=== PATIENT | male | born 1935 | race Caucasian/White ===

== ENCOUNTER 2024-11-11 23:32 | Inpatient (IN) | payer MEDICARE ==
[~2024-11-11] VITALS: Ht 180.3 cm; Wt 84.8 kg
[2024-11-12] MEDS ORDERED: GABA-532 PO (00:21)
[2024-11-12] MEDS ORDERED: LISI-782 PO (00:21)
[2024-11-12] MEDS ORDERED: PRAV10TA40 PO (00:21)
[2024-11-12] MEDS ORDERED: TAMS-3 PO (00:21)
[2024-11-12] MEDS ORDERED: BACL10TA PO (00:21)
[2024-11-12 01:25] VITALS: BP 131/62; TEMP 98.3; O2SAT 95
[2024-11-12] MEDS ORDERED: MAGNESIUM HYDROXIDE 30 ML LIQUID UDC PO PRN (01:30)
[2024-11-12] MEDS ORDERED: TEMAZEPAM 7.5 MG CAPSULE PO PRN ×2 (01:30)
[2024-11-12] MEDS ORDERED: LORAZEPAM 0.5 MG TABLET PO PRN (01:30)
[2024-11-12] MEDS ORDERED: MAG HYDROX/AL HYDROX/SIMETH 30 ML LIQUID UDC PO PRN (01:30)
[2024-11-12] MEDS: BLOOD SUGAR DIAGNOSTIC 1 EACH STRIP VI ONE (01:45)
[2024-11-12] MEDS: LORAZEPAM 1 MG TABLET PO PRN (03:34)
[2024-11-12] MEDS: ACETAMINOPHEN 325 MG TABLET PO PRN (03:35)
[2024-11-12 08:05] VITALS: BP 112/43; TEMP 97.5; O2SAT 95
[2024-11-12 08:15] LABS: GLUCOSE FASTING 110.0 mg/dL (70-115)
[2024-11-12] MEDS ORDERED: BACLOFEN 10 MG TABLET PO SCH (10:15)
[2024-11-12] MEDS ORDERED: GABAPENTIN 100 MG CAPSULE PO SCH (10:15)
[2024-11-12] MEDS ORDERED: LISINOPRIL 5 MG TABLET PO SCH (10:15)
[2024-11-12 10:48] LABS: PLATELET COUNT (AUTO) 157 K/uL (152-348); RED CELL DISTRIBUTION WIDTH 18.2 % (12.1-16.2); WHITE BLOOD COUNT (AUTO) 5.8 K/uL (3.6-10.2)
[2024-11-12 10:53] LABS: RED BLOOD CELL COUNT(AUTO) 2.37 MIL/uL (4.06-5.63)
[2024-11-12 10:54] LABS: EOSINOPHILS % (MANUAL) 4 % (0-8); LYMPHOCYTES % (MANUAL) 21 % (20-40); MONOCYTES % (MANUAL) 11 % (2-10); NEUTROPHILS % (MANUAL) 63 % (42-75); PLATELET ESTIMATE ADEQUATE
[2024-11-12 10:56] LABS: CREATININE 1.2 mg/dL (0.6-1.3); SODIUM SERUM 146 mmol/L (136-145); UREA NITROGEN, BLOOD 27 mg/dL (7-18)
[2024-11-12] MEDS ORDERED: LORAZEPAM 1 MG TABLET PO PRN (16:30)
[2024-11-12] MEDS ORDERED: TAMSULOSIN HCL 0.4 MG CAP.SR.24H PO SCH (18:00)
[2024-11-12 18:02] VITALS: BP 108/44; TEMP 97.4; O2SAT 100
== END 2024-11-12 19:10 | disposition short-term general hospital (02) | DRG 885 ==
LOC: ER 23:48 → GPS 11-12 00:10
PROVIDERS: ADMIT Psychiatry & Neurology Psychosomatic Medicine; ATTEND Nurse Practitioner Family
DX: F39 Unspecified mood [affective] disorder (principal); I69.351 Hemiplegia and hemiparesis following cerebral infarction affecting right dominant side; R71.0 Precipitous drop in hematocrit; T38.3X2D Poisoning by insulin and oral hypoglycemic [antidiabetic] drugs, intentional self-harm, subsequent encounter; E11.40 Type 2 diabetes mellitus with diabetic neuropathy, unspecified; E78.5 Hyperlipidemia, unspecified; N40.0 Benign prostatic hyperplasia without lower urinary tract symptoms; Z79.84 Long term (current) use of oral hypoglycemic drugs; Z79.899 Other long term (current) drug therapy; I48.91 Unspecified atrial fibrillation; I25.10 Atherosclerotic heart disease of native coronary artery without angina pectoris; I10 Essential (primary) hypertension; R41.9 Unspecified symptoms and signs involving cognitive functions and awareness
CPT/HCPCS: 36415; 70030-TC

== ENCOUNTER 2024-11-12 19:55 | Inpatient (IN) | payer MEDICARE ==
[~2024-11-12] VITALS: Ht 180.3 cm; Wt 84.8 kg
[~2024-11-12 19:55] MED LIST: BACL10TA PO; GABA-532 PO; LISI-782 PO; PRAV10TA40 PO; TAMS-3 PO
[2024-11-12 20:00] VITALS: BP 121/67; TEMP 98.3; O2SAT 99
[2024-11-12] MEDS ORDERED: MAGNESIUM HYDROXIDE 30 ML LIQUID UDC PO PRN (20:15)
[2024-11-12] MEDS ORDERED: ONDANSETRON 4 MG/2 ML VIAL IV PRN (20:15)
[2024-11-12] MEDS ORDERED: ACETAMINOPHEN 325 MG TABLET PO PRN (20:15)
[2024-11-13] MEDS: IV NS 1000 ML 1,000 ML IV PRN (01:23)
[2024-11-13 08:05] VITALS: BP 109/53; TEMP 97.7; O2SAT 96
[2024-11-13] MEDS: PANTOPRAZOLE SODIUM 40 MG VIAL IV SCH (08:07)
[2024-11-13 08:19] LABS: *OCCULT BLOOD STOOL NEGATIVE (NEGATIVE)
[2024-11-13 11:32] VITALS: BP 97/46; TEMP 97.9; O2SAT 98
[2024-11-13 15:51] VITALS: BP 97/48; TEMP 97.9; O2SAT 98
[2024-11-13 19:00] VITALS: BP 105/56; TEMP 97.9; O2SAT 99
[2024-11-13] MEDS: CARISOPRODOL 350 MG TABLET PO ONE (23:15)
[2024-11-14 06:15] VITALS: TEMP 97.3; O2SAT 97
[2024-11-14 11:32] VITALS: BP 95/51; TEMP 98; O2SAT 96
[2024-11-14 15:33] VITALS: BP 99/46; TEMP 98.4; O2SAT 99
[2024-11-14 19:00] VITALS: BP 105/53; TEMP 98.2; O2SAT 99
[2024-11-15] MEDS: METHOCARBAMOL 500 MG TABLET PO PRN (01:15)
[2024-11-15] MEDS: PANTOPRAZOLE SODIUM 40 MG TABLET.DR PO SCH (06:26)
[2024-11-15 06:48] VITALS: BP 135/57; TEMP 98; O2SAT 100
== END 2024-11-15 12:00 | DRG 812 ==
LOC: MEDSURG3 19:55
PROVIDERS: ADMIT Nurse Practitioner Family; ATTEND Nurse Practitioner Family
DX: D64.9 Anemia, unspecified (principal); K92.2 Gastrointestinal hemorrhage, unspecified; E86.0 Dehydration; N40.0 Benign prostatic hyperplasia without lower urinary tract symptoms; Z86.73 Personal history of transient ischemic attack (TIA), and cerebral infarction without residual deficits; E78.5 Hyperlipidemia, unspecified; G62.9 Polyneuropathy, unspecified; I10 Essential (primary) hypertension; F39 Unspecified mood [affective] disorder; R41.9 Unspecified symptoms and signs involving cognitive functions and awareness; T50.902D Poisoning by unspecified drugs, medicaments and biological substances, intentional self-harm, subsequent encounter; Z53.29 Procedure and treatment not carried out because of patient's decision for other reasons
CPT/HCPCS: A4663; A6213; G0378